=== PATIENT | female | born 1990 | race Caucasian/White ===

== ENCOUNTER 2018-05-05 04:17 | Emergency (ER) | payer OTHER ==
[2018-05-05 04:55] LABS: ABS Basophils 0 10^3/ul (0-0.2); ABS Eosinophils 0.1 10^3/ul (0-0.6); ABS Monocytes 0.4 10^3/ul (0-0.8); ABS Neutrophils 6.4 10^3/ul (1.5-7.7); ABS Nucleated RBC 0 10^3/ul; Hematocrit 41 % (35-47); Lymphocyte % 12.9 %; Mean Corpuscular HGB Conc 35 g/dl (31-36); Mean Corpuscular Hemoglobin 32 pg (27-31); Mean Corpuscular Volume 94 fL (80-97); Mean Platelet Volume 7.3 fL (7.4-10.4); Nucleated Red Blood Cells % 0; Platelet Count 178 10^3/ul (150-450); Red Cell Distribution Width 12 % (10.5-15); White Blood Count 7.9 10^3/ul (3.5-10.8)
[2018-05-05 05:07] LABS: Urine Appearance Cloudy; Urine Bacteria Absent (Absent); Urine Bilirubin Negative (Negative); Urine Blood 3+ (Negative); Urine Color Yellow; Urine Glucose Negative (Negative); Urine Ketones Negative (Negative); Urine Nitrite Negative (Negative); Urine Protein Negative (Negative); Urine Red Blood Cell 3+(>10/hpf) (Absent); Urine Specific Gravity 1.016 (1.010-1.030); Urine Urobilinogen Negative (Negative); Urine White Blood Cell Trace(0-5/hpf) (Absent)
--- NOTE | 2018-05-05 05:08 | ED ---
Abdominal Pain/Female - HPI Summary HPI Summary: This patient is a 27 year old F presenting to [facility] accompanied by her with a chief complaint of intermittent left flank pain radiating to the lower abd since 02:45 this morning. The patient rates the pain 6/10 in severity. Patient reports nausea, vomiting, increased urinary frequency, back pain, and diaphoresis. Patient denies dysuria, hematuria, fever, diarrhea, or difficulties urinating. The pain improved after vomiting, came back for a while , and went away again. The patient went to sleep at 11pm and was awoken by the pain in her flank. LNMP 3 weeks ago. She has a regular period. PMHX none. No PMHx surgery on abdomen, urinary problems or infections. SHX occasional EtOH. No SHx tobacco use. RX none. - History of Current Complaint Chief Complaint: EDFlankPain Stated Complaint: FLANK PAIN Time Seen by Provider: 05/05/18 04:34 Hx Obtained From: Patient Onset/Duration: Sudden Onset, Lasting Hours Timing: Intermittent Episode Lasting - 30 minutes Severity Initially: Severe Severity Currently: Moderate Pain Intensity: 6 Pain Scale Used: 0-10 Numeric Location: Flank - left Radiates: Yes Radiates to: Other - abdomen Character: Sharp Associated Signs and Symptoms: Positive: Diaphoresis, Back Pain, Nausea, Vomiting. Negative: Urinary Symptoms Allergies/Adverse Reactions: Allergies Allergy/AdvReac Type Severity Reaction Status Date / Time No Known Allergies Allergy Verified 05/05/18 04:24 Home Medications: Home Medications NK [No Home Medications Reported] 05/05/18 [History Confirmed 05/05/18] PMH/Surg Hx/FS Hx/Imm Hx Previously Healthy: Yes - No PMHX Infectious Disease History: No Infectious Disease History: Denies: Traveled Outside the [place] in Last 30 Days - Family History Known Family History: Negative: Renal Disease - Social History Lives: With Family - Alcohol Use: Occasionally Hx Substance Use: No Hx Tobacco Use: No Review of Systems Positive: Skin Diaphoresis. Negative: Fever Positive: Abdominal Pain, Vomiting, Nausea. Negative: Diarrhea Positive: frequency - increased, flank pain - left. Negative: dysuria, hematuria Positive: Myalgia - back All Other Systems Reviewed And Are Negative: Yes Physical Exam - Summary Physical Exam Summary: Appearance: Well-appearing, Well-nourished, lying in bed comfortably Skin: Warm, dry, no obvious rash Eyes: sclera anicteric, no conjunctival pallor ENT: mucous membranes moist, pharynx appears normal Neck: Supple, nontender Respiratory: Clear to auscultation, no signs of respiratory distress Cardiovascular: Normal S1, S2. No murmurs. Normal distal pulses in tibial and radial bilaterally. Abdomen: Soft, nontender, normal active bowel sounds present Musculoskeletal: Normal, Strength/ROM Intact Neurological: A&Ox3, awake and alert, mentation is normal, speech is fluent and appropriate Psychiatric: affect is normal, does not appear anxious or depressed Triage Information Reviewed: Yes Vital Signs On Initial Exam: Initial Vitals Temp Pulse Resp BP Pulse Ox 97.8 F 80 16 124/78 100 05/05/18 04:20 05/05/18 04:20 05/05/18 04:20 05/05/18 04:20 05/05/18 04:20 Vital Signs Reviewed: Yes Diagnostics - Vital Signs Vital Signs Temp Pulse Resp BP Pulse Ox 05/05/18 04:20 97.8 F 80 16 124/78 100 - Laboratory Lab Results: Lab Results 05/05/18 Range/Units 04:43 WBC 7.9 (3.5-10.8) 10^3/ul RBC 4.30 (4.00-5.40) 10^6/ul Hgb 14.0 (12.0-16.0) g/dl Hct 41 (35-47) % MCV 94 (80-97) fL MCH 32 H (27-31) pg MCHC 35 (31-36) g/dl RDW 12 (10.5-15) % Plt Count 178 (150-450) 10^3/ul MPV 7.3 L (7.4-10.4) fL Neut % (Auto) 81.4 % Lymph % (Auto) 12.9 % [place] % (Auto) 4.6 % Eos % (Auto) 1.0 % Baso % (Auto) 0.1 % Absolute Neuts (auto) 6.4 (1.5-7.7) 10^3/ul Absolute Lymphs (auto) 1.0 (1.0-4.8) 10^3/ul Absolute Monos (auto) 0.4 (0-0.8) 10^3/ul Absolute Eos (auto) 0.1 (0-0.6) 10^3/ul Absolute Basos (auto) 0 (0-0.2) 10^3/ul Absolute Nucleated RBC 0 10^3/ul Nucleated RBC % 0 Result Diagrams: 05/05/18 04:43 05/05/18 04:45 Lab Statement: Any lab studies that have been ordered have been reviewed, and results considered in the medical decision making process. - CT abd/pel ct CT Interpretation Completed By: Radiologist Summary of CT Findings: IMPRESSION: Punctate stone in the left bladder base with mild left-sided. hydroureteronephrosis. Findings likely represent recent passage of a stone from. the left kidney No other renal stones are seen bilaterally. THIS REPORT WAS REVIEWED BY ED PHYSICIAN. Abdominal Pain Fem Course/Dx - Course Course Of Treatment: This patient is a 27 year old F presenting to [facility] accompanied by her with a chief complaint of intermittent left flank pain radiating to the lower abd since 02:45 this morning. The patient rates the pain 6/10 in severity. Patient reports nausea, vomiting, increased urinary frequency , back pain, and diaphoresis. Patient denies dysuria, hematuria, fever, diarrhea , or difficulties urinating. Test results with no significant abnormalities. In the ED course the patient was given Ibuprofen. - Diagnoses Provider Diagnoses: Renal colic on left side Discharge - Sign-Out/Discharge Documenting (check all that apply): Patient Departure - discharge - Discharge Plan Condition: Stable Disposition: HOME Patient Education Materials: Kidney Stones (ED) Referrals: Jason Patel MD [Medical Doctor] - If Needed Additional Instructions: I do not see any sign of obstruction of the kidney on the CT scan. I will check on the final reading later today and call you if there are any other findings you need to know about. In the meantime I suspect you have passed the stone and should not have any further trouble. Sometimes there is some residual spasm of the ureter which can cause discomfort, but is generally not severe and responds well to motrin or naprosyn. - Billing Disposition and Condition Condition: STABLE Disposition: Home - Attestation Statements Document Initiated by Scribe: Yes Documenting Scribe: Mickey Patel Provider For Whom Scribe is Documenting (Include Credential): Rocky Alfonso MD Scribe Attestation: I, Mickey Lopez and Dionisio Patel, scribed for Rocky Alfonso MD on 05/05/18 at 1838. Scribe Documentation Reviewed: Yes Provider Attestation: The documentation as recorded by the scribe, Mickey Lopez and Dionisio Patel accurately reflects the service I personally performed and the decisions made by me, Rocky Alfonso MD Status of Scribfelipe Document: Viewed
[2018-05-05] MEDS ORDERED: Ibuprofen TAB* 400 MG PO ONE (05:09)
[2018-05-05 05:10] LABS: ALT 11 U/L (7-52); AST 17 U/L (13-39); Albumin 4.1 g/dL (3.2-5.2); Albumin/Globulin Ratio 1.5 (1-3); Alkaline Phosphatase 45 U/L (34-104); Anion Gap 6 mmol/L (2-11); BUN/Creatinine Ratio 22.5 (8-20); Blood Urea Nitrogen 16 mg/dL (6-24); CO2 Carbon Dioxide 24 mmol/L (22-32); Calcium 9.9 mg/dL (8.6-10.3); Chloride 107 mmol/L (101-111); EGFR Non-African American 97.3 (>60); Globulin 2.8 g/dL (2-4); Glucose 114 mg/dL (70-100); Potassium 3.5 mmol/L (3.5-5.0); Sodium 137 mmol/L (135-145); Total Protein 6.9 g/dL (6.4-8.9)
[2018-05-05 05:17] LABS: HCG Pregnancy < 0.60 mIU/mL
[2018-05-05 07:22] VITALS: BP 120/59
== END 2018-05-05 07:21 | disposition home or self-care (01) ==
LOC: ED 04:17
DX: N23 Unspecified renal colic (principal); R10.84 Generalized abdominal pain; M54.9 Dorsalgia, unspecified; R11.2 Nausea with vomiting, unspecified
CPT/HCPCS: 36415; 74176; 80053; 81003; 81015; 84702; 85025; 87086; 99282; A9270-GY